=== PATIENT | female | born 1990 | race African-American/Black ===

== ENCOUNTER 2024-02-11 12:44 | Emergency (ER) | payer MEDICAID ==
[~2024-02-11] VITALS: Ht 167.6 cm; Wt 62.0 kg
[2024-02-11 12:48] VITALS: O2SAT 99
[2024-02-11] MEDS: TETANUS, DIPHTHERIA, PERTUSSIS VAC/PF 0.5ML (>10YR OLD) IM ONE (13:44)
[2024-02-11 13:45] VITALS: TEMP 98.1
[2024-02-11] MEDS: ACETAMINOPHEN 325MG TABLET PO ONE (13:45)
[2024-02-11] MEDS ORDERED: NAPR220C61 MT (20:02)
[2024-02-11 20:50] VITALS: BP 139/83; PULSE 93; RESP 16
== END 2024-02-11 20:52 | disposition home or self-care (01) ==
LOC: ER 12:44
DX: S80.02XA Contusion of left knee, initial encounter (principal); S80.01XA Contusion of right knee, initial encounter; S09.90XA Unspecified injury of head, initial encounter; G89.11 Acute pain due to trauma; V03.99XA Pedestrian with other conveyance injured in collision with car, pick-up truck or van, unspecified whether traffic or nontraffic accident, initial encounter; Y93.89 Activity, other specified; Y92.89 Other specified places as the place of occurrence of the external cause; Y99.8 Other external cause status
CPT/HCPCS: 81025; 73562; 70450; 90715; 90471; 99285; Z7610 ×2